=== PATIENT | male | born 1985 | race African-American/Black ===

== ENCOUNTER 2016-04-11 | Emergency (ER) | payer OTHER | END 2016-04-11 04:13 | disposition home or self-care (01) | DX: I10 Essential (primary) hypertension (principal) ==

== ENCOUNTER 2016-05-17 10:55 | Outpatient (CLI) | payer OTHER ==
[2016-05-17] MEDS ORDERED: GADOBUTROL 10 MMOL/10 ML VIAL IVP ONE (11:30)
== END 2016-05-17 10:56 | disposition home or self-care (01) ==
DX: R53.1 Weakness (principal); R29.810 Facial weakness
CPT/HCPCS: 70553; A9585

== ENCOUNTER 2016-07-20 08:54 | Outpatient (CLI) | payer OTHER | END 2016-07-20 08:55 | disposition home or self-care (01) | DX: S43.492A Other sprain of left shoulder joint, initial encounter (principal); M67.814 Other specified disorders of tendon, left shoulder; M25.512 Pain in left shoulder ==

== ENCOUNTER 2017-02-11 15:27 | Emergency (ER) | payer OTHER ==
[2017-02-11 15:40] VITALS: BP 155/100
[2017-02-11] MEDS ORDERED: DEXAMETHASONE 10 MG/ML VIAL PO STA (16:17)
[2017-02-11] MEDS ORDERED: KETOROLAC 60 MG/2 ML VIAL IM STA (16:17)
--- NOTE | 2017-02-11 16:23 | ED Physician Documentation ---
PD HPI UPPER EXT INJURY - Stated complaint Stated Complaint: BILATERAL SHOULDER,BACK PX - Chief complaint Chief Complaint: General - History obtained from History obtained from: Patient - History of Present Illness Location: Right, Left, Shoulder Type of injury: Other (overuse) Where injury occurred: Home Timing - onset: Yesterday Timing - duration: Hours Timing - details: Abrupt onset, Still present Improved by: Rest, Immobilization Worsened by: Moving, Palpating Associated symptoms: No: Weakness, Numbness, Tingling Contributing factors: No: Anticoagulated Similar symptoms before: Diagnosis (labrum tear) Recently seen: Other (The patient is being discharged from the [facility] with this shoulder injury.) - Additonal information Additional information: 32-year-old active [employer] male has been discharged from the [employer] yesterday with a service-connected shoulder injury. He injured himself 2 years ago falling into a hole with gear on and has never had resolution of his shoulder pain. He was scheduled to have surgery done but has been discharged from the [facility] and is expecting to see orthopedics at the [facility]. Yesterday he was moving his furniture out of his room and he overused his arms. He states that this worked the entire time today he is having a lot more pain than usual. He does live with daily pain. Review of Systems Constitutional: denies: Fever Nose: denies: Congestion Throat: denies: Sore throat Cardiac: denies: Chest pain / pressure Respiratory: denies: Dyspnea, Cough GI: denies: Vomiting : denies: Dysuria Skin: denies: Rash Musculoskeletal: reports: Back pain, Extremity pain, Joint pain. denies: Neck pain Neurologic: denies: Generalized weakness, Focal weakness, Numbness PD PAST MEDICAL HISTORY - Past Medical History Past Medical History: No Psych: Depression - Past Surgical History Past Surgical History: No - Present Medications Home Medications: Ambulatory Orders Medication Instructions Recorded Confirmed Citalopram [CeleXA] 5 mg PO DAILY 02/11/17 02/11/17 HYDROcod/ACETAM 5/325 [Hackett 5/325] 1 - 2 ea PO Q6H PRN #15 tablet 02/11/17 - Allergies Allergies/Adverse Reactions: Allergies Allergy/AdvReac Type Severity Reaction Status Date / Time nickel Allergy Rash Verified 12/05/15 20:39 - Social History Does the pt smoke?: Yes Smoking Status: Current every day smoker Does the pt drink ETOH?: Yes Does the pt have substance abuse?: No - Immunizations Immunizations are current?: Yes - POLST Patient has POLST: No PD ED PE NORMAL - Vitals Vital signs reviewed: Yes (Hypertensive) - General General: Alert and oriented X 3, Well developed/nourished, Other (The patient appears to be in pain with broadcast operations director tone and flattened affect) - HEENT HEENT: Atraumatic, PERRL - Neck Neck: Supple, no meningeal sign - Respiratory Respiratory: No respiratory distress - Derm Derm: Normal color, Warm and dry, No rash - Extremities Extremities: No deformity, No edema, Other (The patient is muscular and over muscular. He does have pain to palpation of the anterior deltoid especially on the right and he has restriction of motion of both shoulders.) - Neuro Neuro: Alert and oriented X 3, No motor deficit, No sensory deficit, Normal speech Eye Opening: Spontaneous Motor: Obeys Commands Verbal: Oriented GCS Score: 15 - Psych Psych: Normal mood, Normal affect Results - Vitals Vitals: Vital Signs - 24 hr 02/11/17 15:36 Temperature 35.9 C L Heart Rate 71 Respiratory 20 Rate Blood Pressure 155/100 H O2 Saturation 100 Oxygen O2 Source Room air PD MEDICAL DECISION MAKING - ED course Complexity details: considered differential, d/w patient ED course: 30-year-old male with chronic shoulder pain has increased pain after excessive use and here in the emergency department today he is administered dexamethasone 10 mg orally and Toradol 30 mg IM. Departure - Departure Disposition: 01 Home, Self Care Clinical Impression: Acute shoulder bursitis Qualifiers: Laterality: right Qualified Code(s): M75.51 - Bursitis of right shoulder Condition: Stable Instructions: ED Bursitis Follow-Up: Jason Wen MD [Primary Care Provider] - Prescriptions: HYDROcod/ACETAM 5/325 [Hackett 5/325] 1 - 2 ea PO Q6H PRN #15 tablet PRN Reason: Pain
[2017-02-11] MEDS ORDERED: KETOROLAC 60 MG/2 ML VIAL ONE (16:39)
[2017-02-11] MEDS ORDERED: DEXAMETHASONE 10 MG/ML VIAL ONE (16:39)
== END 2017-02-11 16:48 | disposition home or self-care (01) ==
LOC: ED 15:27
DX: M75.51 Bursitis of right shoulder (principal); F17.200 Nicotine dependence, unspecified, uncomplicated
CPT/HCPCS: 96372; 99283

== ENCOUNTER 2017-03-10 14:44 | Emergency (ER) | payer SELFPAY ==
[2017-03-10 14:53] VITALS: BP 142/89
[2017-03-10 15:58] LABS: BILIRUBIN,URINE NEGATIVE (NEGATIVE); PH,URINE 6.5 PH (5.0-7.5)
--- NOTE | 2017-03-10 16:05 | ED Physician Documentation ---
PD HPI MALE - Stated complaint Stated Complaint: SIDE PX - Chief complaint Chief Complaint: Ext Problem - History obtained from History obtained from: Patient - History of Present Illness Timing - onset: How many days ago (10) Timing - duration: Days (10) Timing - details: Gradual onset, Still present Associated symptoms: Dysuria, Urinary frequency, Back pain PD HPI MALE CONTRIB FACTORS: Sexually active, Other (with anal) Similar symptoms before: Has not had sx before Recently seen: Not recently seen - Additional information Additional information: 32 y/o male recently medically discharged from the [facility] with a shoulder injury has been medicating his shoulder pain with alcohol at night. He has developed some urinary urgency, frequency and burning that is better when he drinks and bad in the morning. He has developed some left flank pain and nausea and vomiting with this as well. He has not had fever. He does admit to anal intercourse. Review of Systems Constitutional: reports: Myalgias. denies: Fever, Chills Eyes: denies: Decreased vision Ears: denies: Ear pain Nose: denies: Congestion Throat: denies: Sore throat Cardiac: denies: Chest pain / pressure, Palpitations Respiratory: denies: Dyspnea, Cough GI: reports: Abdominal Pain, Nausea, Vomiting : reports: Dysuria, Frequency. denies: Discharge Skin: denies: Rash Musculoskeletal: reports: Back pain. denies: Neck pain, Extremity pain Neurologic: denies: Generalized weakness, Focal weakness, Numbness PD PAST MEDICAL HISTORY - Past Medical History Psych: Depression - Past Surgical History Past Surgical History: No - Present Medications Home Medications: Ambulatory Orders Medication Instructions Recorded Confirmed Citalopram [CeleXA] 5 mg PO DAILY 02/11/17 03/10/17 - Allergies Allergies/Adverse Reactions: Allergies Allergy/AdvReac Type Severity Reaction Status Date / Time nickel Allergy Rash Verified 03/10/17 14:53 - Social History Does the pt smoke?: Yes Smoking Status: Current every day smoker Does the pt drink ETOH?: Yes Does the pt have substance abuse?: No - Immunizations Immunizations are current?: Yes - POLST Patient has POLST: No PD ED PE NORMAL - Vitals Vital signs reviewed: Yes (hypertensive ) - General General: Alert and oriented X 3, No acute distress, Well developed/nourished - HEENT HEENT: Atraumatic, PERRL, EOMI - Cardiac Cardiac: RRR, No murmur - Respiratory Respiratory: No respiratory distress, Clear bilaterally - Abdomen Abdomen: Soft, Other (mild left upper quadrant tenderness) - Back Back: No spinal TTP, Other (left CVA tenderness extending from the lower ribs on the left to the illiac crest) - Derm Derm: Normal color, Warm and dry, No rash - Extremities Extremities: No deformity, No edema - Neuro Neuro: No motor deficit, No sensory deficit Eye Opening: Spontaneous Motor: Obeys Commands Verbal: Oriented GCS Score: 15 - Psych Psych: Normal mood, Other (affect is flat. ) Results - Vitals Vitals: Vital Signs - 24 hr 03/10/17 14:50 Temperature 36.8 C Heart Rate 83 Respiratory 16 Rate Blood Pressure 142/89 H O2 Saturation 100 Oxygen O2 Source Room air - Labs Labs: Laboratory Tests 03/10/17 15:44 Urine Color YELLOW Urine Clarity CLEAR Urine pH 6.5 Ur Specific [place] 1.020 Urine Protein NEGATIVE Urine Glucose (UA) NEGATIVE Urine Ketones NEGATIVE Urine Occult Blood NEGATIVE Urine Nitrite NEGATIVE Urine Bilirubin NEGATIVE Urine Urobilinogen 0.2 (NORMAL) Ur Leukocyte Esterase NEGATIVE Ur Microscopic Review NOT INDICATED Urine Culture Comments NOT INDICATED Procedures - Bedside sono Bedside sono by EMP: With bedside ultrasound the left kidney is imaged there is no perinephric fluid the area is tender in general there is no - IVC sono (time) 1635 Bedside IVC sono: IVC measures (cm) (1.58), Euvolemia PD MEDICAL DECISION MAKING - ED course Complexity details: reviewed old records, reviewed results, re-evaluated patient , considered differential, d/w patient, d/w family ED course: 32-year-old male recently medically discharged from the [facility] has developed symptoms of pain in his left flank and urethral pain with urination. He does state that the pain has been relieved with excessive hydration but returns in the morning after he has been drinking alcohol at night. He does not think he has injured his back in any way. On initial presentation his symptoms were concerning for pyelonephritis and the urine was completely normal. The patient is complaining of urethral symptoms and on further questioning he is concerned about the possibility of STD. His urine is sent for chlamydia and GC testing and he is given IM Rocephin and Zithromax. He indicates that he had relief of his pain in his shoulder for about 1 week following his visit here previously when he was administered dexamethasone. He is given a second dose of dexamethasone today. He has become depressed with discharge from the [employer] and he is drinking nightly. He does ask for help and the director social service is able to provide resources. He is not suicidal or homicidal and has no thoughts. Departure - Departure Disposition: 01 Home, Self Care Clinical Impression: Urethritis, nonspecific, Left flank pain Condition: Stable Instructions: ED Urethritis Infec Vs Inflam Male, ED STD Male Treated, ED Flank Pain Uncertain Cause Follow-Up: [facility] [Provider Group]
[2017-03-10 16:06] LABS: UA CHARGE (STRIP ONLY) YES; UR CULTURE IF IND NOT INDICATED
[2017-03-10] MEDS ORDERED: cefTRIAXone 250 MG VIAL IM STA (16:48)
[2017-03-10] MEDS ORDERED: AZITHROMYCIN 250 MG TABLET PO STA (16:48)
[2017-03-10] MEDS ORDERED: DEXAMETHASONE 10 MG/ML VIAL PO STA (16:49)
[2017-03-10] MEDS ORDERED: cefTRIAXone 250 MG VIAL ONE (17:03)
[2017-03-10] MEDS ORDERED: DEXAMETHASONE 10 MG/ML VIAL ONE (17:04)
[2017-03-10] MEDS ORDERED: AZITHROMYCIN 250 MG TABLET PO ONE (17:05)
[2017-03-10] MEDS ORDERED: LIDOCAINE 1% 2 ML VIAL ONE (17:08)
[2017-03-10] MEDS ORDERED: CHERRY SYRUP 10 ML UDC PO ONE (17:24)
== END 2017-03-10 17:42 | disposition home or self-care (01) ==
LOC: ED 14:44
DX: N34.2 Other urethritis (principal); R10.32 Left lower quadrant pain; M25.519 Pain in unspecified shoulder; F32.9 Major depressive disorder, single episode, unspecified
CPT/HCPCS: 81003; 87491; 87591; 96372; 99283; A9270; 81001; 87086

== ENCOUNTER 2017-07-28 20:58 | Emergency (ER) | payer OTHER ==
[2017-07-28 21:11] VITALS: BP 161/100
--- NOTE | 2017-07-28 21:21 | ED Physician Documentation ---
PD HPI URI - Stated complaint Stated Complaint: FLU SYMPTOMS - Chief complaint Chief Complaint: Resp - History obtained from History obtained from: Patient - History of Present Illness Timing - onset: How many days ago (2) Timing details: Gradual onset Associated symptoms: Chills, Sweats, Nasal congestion, Sore throat, Dry cough, Productive cough (mostly dry but occasionally productive). No: Fever (did not take temperature at home but has "felt hot" (per patient)), Dyspnea Contributing factors: Travel (flew from [place] 2 days ago) Improves by: Nothing Worsened by: Other (no exacerbating factors) Similar symptoms before: Has not had sx before Recently seen: Not recently seen Review of Systems Constitutional: reports: Chills, Myalgias, Sweats. denies: Fever Nose: reports: Congestion, Sinus pressure / pain Throat: reports: Sore throat Cardiac: denies: Chest pain / pressure Respiratory: reports: Cough. denies: Dyspnea PD PAST MEDICAL HISTORY - Past Medical History Past Medical History: Yes Psych: Depression Other Past Medical History: uses C-PAP at night - Past Surgical History Past Surgical History: No - Present Medications Home Medications: Ambulatory Orders Medication Instructions Recorded Confirmed Citalopram [CeleXA] 5 mg PO DAILY 02/11/17 07/28/17 Benzonatate [Tessalon Perle] 100 mg PO Q6HR PRN #20 capsule 07/28/17 guaiFENesin/CODEINE [Robitussin AC] 5 - 10 ml PO Q6H PRN #100 udc 07/28/17 - Allergies Allergies/Adverse Reactions: Allergies Allergy/AdvReac Type Severity Reaction Status Date / Time nickel Allergy Rash Verified 07/28/17 21:14 - Social History Does the pt smoke?: Yes Smoking Status: Current every day smoker Does the pt drink ETOH?: Yes Does the pt have substance abuse?: No - Immunizations Immunizations are current?: Yes - POLST Patient has POLST: No PD ED PE NORMAL - Vitals Vital signs reviewed: Yes - General General: Alert and oriented X 3, No acute distress, Well developed/nourished - HEENT HEENT: Moist mucous membranes, Pharynx benign - Neck Neck: Supple, no meningeal sign - Cardiac Cardiac: RRR, No murmur - Respiratory Respiratory: No respiratory distress, Other (right base rhonchi) Results - Vitals Vitals: Vital Signs - 24 hr 07/28/17 21:08 Temperature 36.9 C Heart Rate 86 Respiratory 16 Rate Blood Pressure 161/100 H O2 Saturation 99 Oxygen O2 Source Room air - Labs Labs: Laboratory Tests 07/28/17 21:08 Influenza A (Rapid) Negative Influenza B (Rapid) Negative - Rads (name of study) chest xray Radiology: Prelim report reviewed, See rad report PD MEDICAL DECISION MAKING - ED course Complexity details: reviewed results, re-evaluated patient, considered differential, d/w patient Departure - Departure Disposition: 01 Home, Self Care Clinical Impression: Viral URI with cough Condition: Good Instructions: ED Upper Resp Infec No Abx Tx, ED Hypertension Poss Prescriptions: Benzonatate [Tessalon Perle] 100 mg PO Q6HR PRN #20 capsule PRN Reason: Cough guaiFENesin/CODEINE [Robitussin AC] 5 - 10 ml PO Q6H PRN #100 udc PRN Reason: Cough Forms: Activity restrictions Discharge Date/Time: 07/28/17 22:25
--- NOTE | 2017-07-28 21:44 | XRAY Preliminary Report ---
Exam: XR CHEST 2 VIEW X-RAY IMPRESSION: Normal 2-view chest radiography. [facility] SITE ID: [id number]
--- NOTE | 2017-07-28 21:44 | XRAY Report ---
EXAM: CHEST RADIOGRAPHY EXAM DATE: 07/28/2017 09:29 PM. CLINICAL HISTORY: Cough. Rhonchi on exam. COMPARISON: None. TECHNIQUE: 2 views. FINDINGS: Lungs/Pleura: Normal volumes. No focal consolidation or evidence of edema. No pleural effusion or pne umothorax. Mediastinum: Normal cardiomediastinal contour. Other: The bones are normal. IMPRESSION: Normal 2-view chest radiography. [facility] Referring Provider Line: [phone] SITE ID: [id number]
[2017-07-28] MEDS ORDERED: BENZONATATE 100 MG CAPSULE PO STA (22:17)
== END 2017-07-28 22:25 | disposition home or self-care (01) ==
LOC: ED 20:58
DX: J06.9 Acute upper respiratory infection, unspecified (principal); B34.9 Viral infection, unspecified; R05 Cough; F17.200 Nicotine dependence, unspecified, uncomplicated
CPT/HCPCS: 71046; 87275; 87276; 99282; 99283; A9270